=== PATIENT | male | born 1950 | race Caucasian/White ===

== ENCOUNTER 2018-04-13 00:25 | Emergency (ER) | payer SELFPAY ==
[~2018-04-13] VITALS: Ht 167.6 cm; Wt 100.0 kg
[2018-04-13] MEDS ORDERED: MIDAZOLAM HCL 2 MG/2 ML VIAL ONE (01:01)
[2018-04-13 01:11] VITALS: BP 59/31
[2018-04-13] MEDS ORDERED: PHENYLEPHRINE 10 MG in DEXTROSE 5% WATER 250 ML IV PRN (01:15)
[2018-04-13] MEDS ORDERED: DOPAMINE 800MG PREMIX (DOUBLE) 250 ML IV SCH (01:15)
[2018-04-13] MEDS ORDERED: PHENYLEPHRINE 10 MG in DEXT 5% WATER 249 ML IV STA (01:20)
[2018-04-13 01:21] LABS: BG BASE EXCESS -18.8 mmol/L (-2.0-2.0); BG CARBOXYHEMOGLOBIN 0.3 % (0.5-1.5); BG DEOXYHEMOGLOBIN 2.7 % (0.0-5.0); BG FRACTION INSPIRED OXYGEN 100; BG HCO3 ACT 10.6 mmol/L (22.0-26.0); BG METHEMOGLOBIN 0.2 % (0.0-1.5); BG OXYGEN SATURATION 97.3 % (92.0-98.5); BG OXYHEMOGLOBIN 96.8 % (94.0-97.0); BG PCO2 38.3 mmHg (35.0-45.0); BG PO2 146.8 mmHg (75.0-100.0); BG SAMPLE SITE RIGHT BRACHIAL; BG TIDAL VOLUME(mL) 500 mL; BG TOTAL HEMOGLOBIN 11.6 g/dL (12.0-18.0); BG VENT MODE VENT - A/C; BG VENT RATE 16 set
[2018-04-13 02:06] LABS: HEMATOCRIT. 39.4 % (42.0-52.0); HEMOGLOBIN. 12.6 g/dL (14.0-18.0); MEAN CORPUSCULAR HEMOGLOBIN 32.7 pg (28.0-32.0); MEAN CORPUSCULAR VOLUME 102.3 fL (80.0-94.0); PLATELET 113 x1000/uL (130-400); RED BLOOD CELL COUNT 3.85 mill/uL (4.7-6.1); RED CELL DISTRIBUTION WIDTH 12.5 % (11.6-14.6)
[2018-04-13 02:12] LABS: CHLORIDE 102 mEq/L (98-107); INR 1.2; PARTIAL THROMBOPLASTIN TIME 33.6 sec (23.4-31.0); PROTHROMBIN TIME 12.1 sec (9.1-11.1)
[2018-04-13 02:44] LABS: PLATELET ESTIMATE DECREASED
[2018-04-13] MEDS ORDERED: SODIUM BICARBONATE 7.5% 0.9 MEQ/ML 50ML SYR IV ONE (15:52)
[2018-04-13] MEDS ORDERED: EPINEPHRINE 0.1MG/ML (1:10,000) 10ML SYR ONE ×2 (15:52→16:01)
[2018-04-13] MEDS ORDERED: CALCIUM CHLORIDE 1GM/10ML SYR IV ONE (15:52)
[2018-04-13] MEDS ORDERED: AMIODARONE HCL 50MG/ML 3ML VIAL IV ONE (15:52)
== END 2018-04-13 01:35 | disposition short-term general hospital (02) ==
LOC: ER 00:25
DX: I21.3 ST elevation (STEMI) myocardial infarction of unspecified site (principal); J96.00 Acute respiratory failure, unspecified whether with hypoxia or hypercapnia; E11.9 Type 2 diabetes mellitus without complications; Z86.74 Personal history of sudden cardiac arrest
CPT/HCPCS: 31500; 36415; 36556; 36600; 80053; 82375; 82805; 82962; 83690; 83880; 84484; 85025; 85610; 85730; 92950; 93005; 94002; 96365; 99291; J0282; J1265; J2250; J2370; J3490; J7060; Z7610; 36555